=== PATIENT | female | born 1975 | race Caucasian/White ===

== ENCOUNTER 2021-06-21 18:51 | Emergency (ER) | payer BC, OTHER ==
[2021-06-21 19:02] VITALS: TEMP 98.3
--- NOTE | 2021-06-21 19:27 | ED ---
URI HPI - General Chief Complaint: Upper Respiratory Infection Stated Complaint: Covid+/antibodies Time Seen by Provider: 06/21/21 18:54 Source: patient, RN notes reviewed Mode of arrival: ambulatory Limitations: no limitations - History of Present Illness Initial Comments: 38-year-old female history of hypertension states she had the onset 2 days ago o f headache with sinus drainage she was seen in outpatient clinic the next day and was diagnosed with a sinus infection and placed on antibiotics she has a fevers chills and sweats she did a home Coban 19 test today and was found to be positive. She has body aches and generally feels fatigued she states her was diagnosed a couple days before she was. The current complaints or modifying factors MD Complaint: fever, cough, nasal congestion - Related Data Home Medications Medication Instructions Recorded Confirmed Acetaminophen [Tylenol] 1,000 mg PO Q4-6H PRN 06/21/21 06/21/21 Amoxic-Pot Clav 875-125Mg 1 tab PO BID 06/21/21 06/21/21 [Augmentin 875-125] amLODIPine [Norvasc] 5 mg PO BID 06/21/21 06/21/21 hydroCHLOROthiazide [Hydrodiuril] 25 mg PO DAILY 06/21/21 06/21/21 Allergies Allergy/AdvReac Type Severity Reaction Status Date / Time bee venom protein (honey bee) Allergy Rash/Hives Verified 06/21/21 19:47 shellfish derived [Shellfish] Allergy Rash/Hives Verified 06/21/21 19:47 Review of Systems ROS Statement: Those systems with pertinent positive or pertinent negative responses have been documented in the HPI. ROS Other: All systems not noted in ROS Statement are negative. Past Medical History Past Medical History: Hypertension History of Any Multi-Drug Resistant Organisms: None Reported Past Surgical History: Appendectomy Past Psychological History: Anxiety Smoking Status: Never smoker Past Alcohol Use History: Occasional Past Drug Use History: Marijuana General Exam - General Exam Comments Initial Comments: This is a well-developed well-nourished awake alert oriented 3 female Limitations: no limitations General appearance: alert, anxious Head exam: Present: atraumatic, normocephalic, normal inspection Eye exam: Present: normal appearance, PERRL, EOMI. Absent: scleral icterus, conjunctival injection, periorbital swelling ENT exam: Present: normal exam, mucous membranes moist Neck exam: Present: normal inspection. Absent: tenderness, meningismus, lymphadenopathy Respiratory exam: Present: normal lung sounds bilaterally. Absent: respiratory distress, wheezes, rales, rhonchi, stridor Cardiovascular Exam: Present: regular rate, normal rhythm, normal heart sounds. Absent: systolic murmur, diastolic murmur, rubs, gallop, clicks GI/Abdominal exam: Present: soft, normal bowel sounds. Absent: distended, tenderness, guarding, rebound, rigid Extremities exam: Present: normal inspection, full ROM, normal capillary refill. Absent: tenderness, pedal edema, joint swelling, calf tenderness Back exam: Present: normal inspection Neurological exam: Present: alert, oriented X3, CN II-XII intact Psychiatric exam: Present: normal affect, normal mood Skin exam: Present: warm, dry, intact, normal color. Absent: rash Course Vital Signs 06/21/21 06/21/21 06/21/21 18:56 20:00 20:07 Temperature 98.3 F Pulse Rate 100 99 Respiratory 20 18 18 Rate Blood Pressure 178/110 154/98 O2 Sat by Pulse 98 97 Oximetry Medical Decision Making - Medical Decision Making The patient was a candidate for COVID-19 antibody infusion. We had a long discussion she is agreed to accept. She will be discharged after the infusion as planned. - Lab Data Lab Results 06/21/21 Range/Units 19:02 Coronavirus (PCR) Detected A (Not Detectd) Disposition Clinical Impression: COVID-19 Disposition: HOME SELF-CARE Condition: Good Instructions (If sedation given, give patient instructions): Coronavirus Disease 2019 (COVID-19) Is patient prescribed a controlled substance at d/c from ED?: No Referrals: Tony Patel DO [Primary Care Provider] - 1-2 days
[2021-06-21] MEDS ORDERED: BAMLANIVIMAB (EUA) 700 MG, ETESEVIMAB (EUA) 1,400 MG in SODIUM CHLORIDE 0.9% 50 ML IVPB ONE (19:30)
[2021-06-21] MEDS ORDERED: SODIUM CHLORIDE 0.9% 50 ML IVPB ONE (19:30)
[2021-06-21 20:08] VITALS: RESP 18
[2021-06-21 21:40] VITALS: BP 146/106; PULSE 95
== END 2021-06-21 21:40 | disposition home or self-care (01) ==
LOC: EC 18:51
DX: U07.1 COVID-19 (principal); I10 Essential (primary) hypertension; Z91.013 Allergy to seafood; Z91.030 Bee allergy status; Z79.899 Other long term (current) drug therapy
CPT/HCPCS: 87635; 99284; J3490

== ENCOUNTER → 2022-03-12 | Outpatient (CLI) | payer BC ==
[2022-03-12 18:22] LABS: Basophils # (A) 0.03 X 10*3/uL (0.00-0.10); Basophils % (A) 0.5 %; Eosinophils # (A) 0.17 X 10*3/uL (0.04-0.35); Eosinophils % (A) 2.6 %; HCT 41.2 % (37.2-46.3); HGB 13.4 g/dL (12.0-15.0); Immature Grans, Automated 0 %; Lymphocytes # (A) 1.54 X 10*3/uL (0.90-5.00); Lymphocytes % (A) 23.6 %; MCH 28.9 pg (27.0-32.0); MCHC 32.5 g/dL (32.0-37.0); MCV 88.8 fL (80.0-97.0); Mean Platelet Volume 10.5 fL (9.5-12.2); Monocytes # (A) 0.33 X 10*3/uL (0.20-1.00); Monocytes % (A) 5.1 %; NRBC Per 100 WBC 0 /100 WBCS (0.0-0.0); Neutrophils # (A) 4.45 X 10*3/uL (1.80-7.70); Neutrophils % (A) 68.2 %; Platelet Count 346 X 10*3/uL (140-440); RBC 4.64 X 10*6/uL (4.10-5.20); RDW 13.8 % (11.5-14.5); WBC 6.52 X 10*3/uL (4.50-10.00)
[2022-03-12 18:45] LABS: ALT 19 U/L (8-44); AST 18 U/L (13-35); African American GFR (CKD) 110.3 (60.0-200.0); Albumin 4.6 g/dL (3.8-4.9); Albumin/Globulin Ratio 1.95 (1.60-3.17); Alkaline Phosphatase 71 U/L (41-126); BUN/Creat Ratio 15.73 Ratio (12.00-20.00); Blood Urea Nitrogen 11.7 mg/dL (9.0-27.0); Calcium 10.1 mg/dL (8.7-10.3); Carbon Dioxide 28.5 mmol/L (20.0-27.5); Chloride 99 mmol/L (96-109); Chol/HDL Ratio 3.07 Ratio; Globulin 2.4 g/dL (1.6-3.3); Glucose 93 mg/dL (70-110); LDL Cholesterol,Calculated 125.8 mg/dL (0.0-131.0); Non-African American GFR(CKD) 95.2 (60.0-200.0); Potassium 4.9 mmol/L (3.5-5.5); Sodium 138 mmol/L (135-145)
[2022-03-13 05:48] LABS: Egg White IgE <0.10 kU/L; Peanut IgE <0.10 kU/L; Shrimp IgE <0.10 kU/L; Soybean IgE <0.10 kU/L
== END | disposition home or self-care (01) ==
LOC: LABWHC1 10:52
PROVIDERS: ATTEND Otolaryngology
DX: I10 Essential (primary) hypertension (principal); E78.2 Mixed hyperlipidemia; J30.89 Other allergic rhinitis
CPT/HCPCS: 36415; 80053; 80061; 84443; 85025; 86003

== ENCOUNTER → 2023-04-08 | Outpatient (CLI) | payer BC ==
--- NOTE | 2023-04-11 08:24 | MM ---
Reason for Exam: Screening (asymptomatic). Last mammogram was performed 7 year(s) and 1 month(s) ago. Patient History: Menarche at age 12. Patient has no children. Paternal grandmother had breast cancer, age 50. Risk Values: Trudy 5 year model risk: 0.9%. NCI Lifetime model risk: 9.2%. Prior Study Comparison: 03/04/2016 Bilateral Screening Mammogram, [facility]. 03/17/2016 Right Diagnostic Mammogram, [facility]. Tissue Density: The breast tissue is heterogeneously dense. This may lower the sensitivity of mammography. Findings: Analyzed By CAD. There is no suspicious group of microcalcifications or new suspicious mass in either breast. Overall Assessment: Negative, BI-RAD 1 Management: Screening Mammogram of both breasts in 1 year. A clinical breast exam by your physician is recommended on an annual basis and results should be correlated with mammographic findings. Note on Trudy scores and lifetime risk: 1. A Trudy score greater than 3% is considered moderate risk. If this is the case, consider specialist referral to assess eligibility for a risk reducing agent. If overall lifetime risk for the development of breast cancer is 20% or higher, the patient may qualify for future screening with alternating mammogram and breast MRI. Electronically signed and approved by: Shelton Johnson D.O.
== END | disposition home or self-care (01) ==
LOC: RADMAMWWP 07:47
PROVIDERS: ATTEND Family Medicine
DX: Z12.31 Encounter for screening mammogram for malignant neoplasm of breast (principal); Z80.3 Family history of malignant neoplasm of breast
CPT/HCPCS: 77063; 77067